=== PATIENT | male | born 1965 | race Caucasian/White ===

== ENCOUNTER 2020-10-28 12:01 | Outpatient (CLI) | payer OTHER ==
[~2020-10-28] VITALS: Ht 187 cm; Wt 70.0 kg
[2020-10-28 11:50] VITALS: BP 152/93
[2020-10-28] MEDS ORDERED: CASIRIVIMAB/IMDEVIMAB 1,200 MG in NS (IVPB) 250 ML IV ONE (12:30)
[2020-10-28] MEDS ORDERED: EPINEPHrine INJECTION 1 MG/ML AMP IM PRN (12:30)
[2020-10-28] MEDS ORDERED: diphenhydrAMINE 50 MG/ML INJ (BENADRYL) IV PRN (12:30)
[2020-10-28 13:20] VITALS: BP 151/94
== END 2020-10-28 14:20 | disposition home or self-care (01) ==
LOC: INFUSION 12:01
PROVIDERS: ATTEND Nurse Practitioner Family
DX: Z23 Encounter for immunization (principal); U07.1 COVID-19